=== PATIENT | male | born 1990 | race African-American/Black ===

== ENCOUNTER 2021-08-06 16:43 | Emergency (ER) | payer SELFPAY ==
[~2021-08-06] VITALS: Ht 182.9 cm; Wt 80.0 kg
[2021-08-06 16:46] VITALS: BP 110/71
== END 2021-08-06 21:16 | disposition left against medical advice (07) ==
LOC: ER 16:43
DX: Z53.21 Procedure and treatment not carried out due to patient leaving prior to being seen by health care provider (principal)